=== PATIENT | female | born 1985 | race Caucasian/White ===

== ENCOUNTER 2020-03-07 05:08 | Outpatient (CLI) | payer OTHER ==
[2020-03-07 14:06] LABS: Anion Gap 11 mmol/L (10-20); BUN (Urea Nitrogen) 8 mg/dL (7.0-18.7); Calc. Creatinine Clearance 0 mL/min (70-130); Calcium 9.2 mg/dL (7.8-10.44); Carbon Dioxide 26 mmol/L (22-29); Chloride 105 mmol/L (98-107); Estimated GFR-MDRD Greater than 90; Glucose 88 mg/dL (70-105); Potassium 3.9 mmol/L (3.5-5.1); Sodium 138 mmol/L (136-145)
[2020-03-07 14:20] LABS: Hemoglobin 13.7 g/dL (12.0-16.0); Mean Corpuscular HGB CONC 32.8 g/dL (32.0-36.0); Mean Corpuscular Volume 97.7 fL (78.0-98.0); Platelet Count 169 thou/uL (130-400); RBC Distribution Width 12.4 % (11.5-14.5); White Blood Cell (WBC) Count 6.9 thou/uL (4.8-10.8)
[2020-03-08 12:38] LABS: SARS-CoV-2 MS2 Positive; SARS-CoV-2 N Gene Negative; SARS-CoV-2 S Gene Negative; SARS-CoV-2 orf1ab Negative
== END 2020-03-07 05:09 | disposition home or self-care (01) ==
LOC: LABBT 05:08
PROVIDERS: ATTEND Urology
DX: Z01.812 Encounter for preprocedural laboratory examination (principal); Z11.59 Encounter for screening for other viral diseases; N31.9 Neuromuscular dysfunction of bladder, unspecified
CPT/HCPCS: 80048; 85027; 87635; U0003

== ENCOUNTER 2020-03-11 08:55 | Day surgery (SDC) | payer OTHER ==
[2020-03-11] MEDS ORDERED: Levofloxacin 500 mg/D5W 100 ml Premix Bag ONE (09:10)
[2020-03-11] MEDS ORDERED: Fentanyl 100 MCG/2 ML VIAL ONE (11:46)
[2020-03-11] MEDS ORDERED: Dexamethasone 20 MG/5 ML VIAL ONE (12:17)
[2020-03-11] MEDS ORDERED: PROPOFOL 200 MG/20 ML VIAL ONE (12:17)
[2020-03-11] MEDS ORDERED: Ondansetron PF 4 MG/2 ML Vial ONE (12:17)
[2020-03-11] MEDS ORDERED: Lidocaine 1% PF 5 ML VIAL ONE (12:17)
[2020-03-11] MEDS ORDERED: EPHEDRINE 25 MG/5 ML SYRINGE ONE (12:17)
[2020-03-11] MEDS ORDERED: Bupivacaine 0.25% HCL 30 ML VIAL ONE (13:39)
[2020-03-11] MEDS ORDERED: Oxybutynin 5 MG TAB ONE (14:28)
[2020-03-11] MEDS ORDERED: Ketorolac Tromethamine 30 MG/ML VIAL ONE (14:29)
--- NOTE | 2020-03-11 16:35 | OP ---
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 PROCEDURES PERFORMED: Revision of Mitrofanoff, cystoscopy. ANESTHESIA: General and 20 mL of local utilizing 0.25% Marcaine 20 mL. SPECIMEN: None. BLOOD LOSS: 30 mL. COMPLICATIONS: None. DESCRIPTION OF PROCEDURE: After informed consent, the patient was taken to the operating room. She was transferred to the table. Anesthesia was established. A time-out was performed showing the correct patient, site, and procedure. Preoperative antibiotics were administered. She was prepped and draped in the supine position including her perineum to allow cystoscopy. I began by examining the Mitrofanoff noting that it protruded about 1.5 cm from the level of the skin. Where I presumed she has been catheterizing was severely stenotic. I was unable to pass a wire even through this. Using electrocautery on cutting current and tenotomy scissors, I dissected down through the middle of the Mitrofanoff until I was able to identify a channel. I was able to pass the wire; however, was unable to pass anything larger. I continued to dissect until I reached an area that was more normal caliber, which was just below the skin level. The protruding tissue was excised and then the Mitrofanoff was circumferentially dissected to allow slight spatulation and maturation to the surrounding skin. The stoma was matured to the surrounding skin using 4-0 Vicryl suture in an interrupted fashion. I was then able to place a 12-Latv[place] catheter through the channel and into the bladder. Flexible cystoscopy was performed showing the Baird catheter in good position and the anterior aspect of the bladder with no hematuria or bladder abnormalities. The stoma was then dressed with Xeroform, 4x4s, and tape. The Baird catheter was connected to bag drainage. All counts were correct at the end of the case. The patient was then awoken from anesthesia, transferred back to her hospital bed, and taken to PACU in stable condition, where she will discharge home and follow up with me in 2 days. Job ID: [id number]
== END 2020-03-11 15:55 | disposition home or self-care (01) ==
LOC: SDC 08:55
PROVIDERS: ATTEND Urology
PROC: 0D9J3ZZ Drainage of Appendix, Percutaneous Approach (ICD-10-PCS; principal; 2020-03-11)
DX: N99.524 Stenosis of incontinent stoma of urinary tract (principal); Z88.0 Allergy status to penicillin; Z88.2 Allergy status to sulfonamides; Z91.018 Allergy to other foods
CPT/HCPCS: J1100; J1885; J1956; J2405; J2704; J3010; S0020

== ENCOUNTER 2021-10-15 12:45 | Outpatient (CLI) | payer MEDICARE, MEDICAID | END 2021-10-15 12:46 | disposition home or self-care (01) | PROVIDERS: ATTEND Family Medicine | DX: S14.11 Complete lesion of cervical spinal cord (principal); N31.9 Neuromuscular dysfunction of bladder, unspecified ==

== ENCOUNTER 2022-09-02 15:20 | Outpatient (CLI) | payer MEDICARE, OTHER | END 2022-09-02 15:21 | disposition home or self-care (01) | LOC: ULT 15:20 | PROVIDERS: ATTEND Family Medicine | DX: M79.89 Other specified soft tissue disorders (principal) ==